=== PATIENT | male | born 1950 | race Caucasian/White ===

== ENCOUNTER 2016-12-19 14:39 | Emergency (ER) | payer MEDICARE ==
[~2016-12-19] VITALS: Ht 185.4 cm; Wt 97.7 kg
[~2016-12-19 14:39] MED LIST: ALPR0.5T8 PO; AMLO10TA3 PO; CYCL10TA9 PO; GABA-502 PO; OXYC5TAB72 PO; PARO10TA2 PO; ZOF8 PO
[2016-12-19 14:46] VITALS: BP 162/90; PULSE 48; RESP 17; O2SAT 97
--- NOTE | 2016-12-19 15:01 | ED.REPORT ---
HPI-Chest Pain 40 and Over Date of Service Dec 19, 2016 ED Provider: Dr. Schultz Pt is a 66 y/o male w/ a hx of presenting to the ED via EMS with his due to an episode of near-syncope prior to arrival. The pt has a history of diagnosed sick sinus syndrome and prolonged QT syndrome and while he was at his mid wife Dr. Henriquez's office today, he experienced an episode of near- syncope. EMS noted a heart rate as low as 44 bpm on route. The patient was hypertensive, systolic BP in the 170s. The pt has been feeling generally weak for many days now, increased today. He has also been experiencing intermittent CP for 1 month including today. His lightheadedness occurs even while lying down. He denies fever, chills, nausea, vomiting. A problem list from her previous admission states: "Torsades de Pointes" with no other explanation. The provides most of the history. Regular mid wife: Dr. Bermeo Nursing Notes Stated Complaint: SYNCOPE Chief Complaint: Chest Pain Nursing Notes Reviewed: Yes Allergies: Coded Allergies: codeine (Unverified Adverse Reaction, Severe, GI UPSET, 06/04/15) fentanyl (Unverified Adverse Reaction, Severe, N&V, 06/04/15) morphine (Unverified Adverse Reaction, Severe, N&V, 06/04/15) pregabalin (Unverified Adverse Reaction, Severe, NIGHTMARES (PT TAKING DRUG), 06/04/15) Scheduled Amlodipine (Amlodipine) 10 Mg Tablet 10 MG PO DAILY PLEASE VERIFY DOSAGE Gabapentin (Gabapentin) 300 Mg Capsule 300 MG PO BID Paroxetine (Paroxetine) 10 Mg Tablet 10 MG PO HS Scheduled PRN Alprazolam (Alprazolam) 0.5 Mg Tablet 0.5 MG PO DAILY PRN PRN For Anxiety Cyclobenzaprine (Cyclobenzaprine) 10 Mg Tablet 10 MG PO HS PRN PRN Spasm Ondansetron (Zofran) 8 Mg Tablet 8 MG PO Q4H PRN PRN For Nausea oxyCODONE (oxyCODONE) 5 Mg Tablet 5 MG PO Q6H PRN PRN For Pain General Time Seen by MD: 15:01 Chief Complaint Other (near syncope) Hx Obtained From: Patient, Spouse Arrived By: Ambulance Sudden in Onset?: Yes Context of Onset: At rest Symptom Duration: Since onset Location: : Substernal Quality: Painful Severity: Current: Mild Severity: Maximum: Mild Recent Healthcare: Previous diagnosis Similar Sx Previous: Yes Past Medical History Past Medical History 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 Physical Exam Initial Vital Signs Vital Signs (First) Date Time Temp Pulse Resp B/P Pulse Ox O2 Delivery O2 Flow Rate FiO2 12/19/16 14:46 36.8 48 17 162/90 97 Room Air 12/19/16 16:19 0 Initial VS: Reviewed, Vital signs abnormal Head / Eyes: Atraumatic, Normocephalic, PERRL ENT: Mucous membranes moist, Conjunctiva normal, No scleral icterus Neck: Supple, Full range of motion Skin: Warm, Dry, No cyanosis Neurologic: Alert, Oriented, Nonfocal Psychiatric: Mood/affect normal, Behavior normal, Normal thought content General/Constitutional: Awake, Alert, Cooperative Behavior: Positive: Anxious (moderate) Respiratory / Chest: Atraumatic, Breath sounds NL, Breath sounds = bilat, No respiratory distress, No rales, No rhonchi, No wheezing, No retractions, No stridor, No chest tenderness, No chest wall deformity, No crepitus Cardiovascular: Heart rate NL, Regular rhythm, Heart sounds NL, No gallop, No murmurs, No rubs, Cap refill not delayed, Peripheral circulation NL Abdomen: Atraumatic, Soft, Non-tender, No guarding, No rebound, No distention, No palpable mass Lower Extremity / Pelvis / MS: No deformity, Neurologic intact, Vascular intact Above the knee amputation on the left Abnormal Mood/Affect: Positive: Anxious, Flat affect Interpretation & Diagnostics Lab Results Interpretation Result Diagram: 12/19/16 1512 12/19/16 1512 Test 12/19/16 15:12 White Blood Count 7.0th/mm3 (3.8-10.1) Red Blood Count 5.33mil/mm3 (4.40-5.80) Hemoglobin 15.7g/dL (13.8-17.2) Hematocrit 46.2% (41.0-50.0) Mean Corpuscular Volume 86.7fL (81-100) Mean Corpuscular Hemoglobin 29.5pg (27.0-35.0) Mean Corpuscular Hemoglobin Concent 34.0% (32.0-37.0) Red Cell Distribution Width 13.6% (12.3-15.4) Platelet Count 141bil/L (150-400) Neutrophils (%) (Auto) 51.9% (40-74) Lymphocytes (%) (Auto) 26.3% (14-46) Monocytes (%) (Auto) 10.1% (4-12) Eosinophils (%) (Auto) 10.5% (0-5) Basophils (%) (Auto) 1.1% (0-3) Sodium Level 138mEq/L (134-144) Potassium Level 4.0mEq/L (3.5-5.2) Chloride Level 99mEq/L (97-108) Carbon Dioxide Level 25mmol/L (18-29) Blood Urea Nitrogen 17mg/dL (8-27) Creatinine 1.21mg/dL (0.76-1.27) Estimat Glomerular Filtration Rate 64mL/min (>59) Glucose Level 83mg/dL (60-99) Calcium Level 9.7mg/dL (8.5-10.1) Magnesium Level 1.9mg/dL (1.6-2.6) Total Bilirubin 0.2mg/dL (0.0-1.2) Aspartate Amino Transf (AST/SGOT) 21U/L (0-50) Alanine Aminotransferase (ALT/SGPT) 35U/L (0-44) Alkaline Phosphatase 80U/L (25-160) Troponin T < 0.010ug/L (0.0-0.011) Total Protein 7.3g/dL (6.4-8.4) Albumin 4.5g/dL (3.4-5.0) ECG Interpretation ECG Interpretation: Bigeminy with underlying sinus rhythm rate 88 Multiple PVCs RBBB Time: 15:13 Interpreted by: ED physician Normal ECG Interpretation: No acute ischemic changes X-Ray Chest Interpretation Chest Xray Interpretation: IMPRESSION: Atelectasis versus scarring involving the left lung base otherwise no acute cardiopulmonary process. Dictated by: Selvin Vazquez RRA Interpreted: Rosy Nayak MD on 12/19/2016 at 15:47 Transcribed by: APRIL on 12/19/2016 at 15:47 View: Portable, 1 view Interpretation / Wet Read by: Interpret - Radiologist Re-Eval/Medical Decision Source of Hx: Old records, EMS, Family Time of Eval: 16:16 Re-Evaluation/Progress Note: Pt rechecked. Discussed admission vs discharge. He feels OK to be discharged at this time. I feel this is appropriate. Vital signs are stable. Labs are normal. Informed pt of plan for treatment. Pt understands and agrees with plan for treatment. F/U instructions and RTER warnings given. All questions addressed. Consultation : Referral / Consult Name: Oliver Henriquez MD Consulted With: Cardiology Call Returned at: 16:00 Aml Analyst: Agrees with eval, Agrees with plan Note: Discussed case with pt's mid wife. Counseled Regarding: Diagnosis, Lab results, Need for follow-up, When/why to return to ED Discharge & Departure Primary Impression: Near syncope Disposition: Home Discharge Condition All VS Reviewed: Yes Condition: Stable Patient Instructions: Syncope (ED) Additional Instructions: No dangerous cause for your symptoms was found today. If you faint and go unconscious, return to the ER tonight. Follow-up with Dr. Forrest as soon as you can to discuss furterh work-up. Call Dr. Henriquez's office to reschedule today 's visit. Referrals: Maximus Bermeo MD (PCP) Oliver Henriquez MD Scribcassi Attestation Portions of this note were transcribed by Jordan Lorenzo. I, Dr. Schultz personally performed the history, physical exam and medical decision-making; I reviewed and confirmed the accuracy of the information in the transcribed note. Signed by Paulette Aquino, 12/19/16 - 2097 copies to: Oliver Henriquez MD; Maximus Bermeo MD, Kirk H MD Dec 19, 2016 15:01 JORDAN LORENZO Dec 19, 2016 15:04 JORDAN LORENZO Dec 19, 2016 15:04
[2016-12-19 15:20] LABS: BASOPHILS % (AUTO) 1.1 % (0-3); EOSINOPHILS % (AUTO) 10.5 % (0-5); MONOCYTES % (AUTO) 10.1 % (4-12); Mean Corpuscular Hemoglobin 29.5 pg (27.0-35.0); Mean Corpuscular Volume 86.7 fL (81-100); NEUTROPHILS % (AUTO) 51.9 % (40-74); Platelet Count 141 bil/L (150-400)
[2016-12-19 15:42] LABS: Magnesium 1.9 mg/dL (1.6-2.6)
--- NOTE | 2016-12-19 15:48 | DRSVH ---
PROCEDURE: X-RAY CHEST ONE VIEW, PORTABLE ([id number]) INDICATIONS: Chest pain TECHNIQUE: One view of the chest was acquired. COMPARISON: [facility], , CHEST 2 VIEW, 03/29/2016, 13:25. FINDINGS: Surgical changes and devices: None. Lungs and pleura: No pleural effusions or pneumothorax. Lungs are clear, aside from mild scarring v ersus atelectasis at the left lung base. Mediastinum: Mediastinal contours appear normal. Heart size is normal. Bones and chest wall: No suspicious bony lesions. Overlying soft tissues appear unremarkable. IMPRESSION: Atelectasis versus scarring involving the left lung base otherwise no acute cardiopulmona ry process. Dictated by: Selvin Vazquez RRA Interpreted: Rosy Nayak MD on 12/19/2016 at 15:47 Transcribed by: APRIL on 12/19/2016 at 15:47 Approved by: Rosy Nayak MD, PhD on 12/19/2016 at 17:05
[2016-12-19 15:51] LABS: TROPONIN T < 0.010 ug/L (0.0-0.011)
[2016-12-19 16:19] VITALS: BP 157/90; PULSE 52; RESP 15; O2SAT 99
[2016-12-19 16:48] VITALS: BP 175/97; PULSE 51; RESP 18; O2SAT 98
== END 2016-12-19 16:50 | disposition home or self-care (01) ==
LOC: SED 14:39 → EDBD 14:39 → SED 16:50
DX: R55 Syncope and collapse (principal); R53.1 Weakness; R07.2 Precordial pain; R42 Dizziness and giddiness; I10 Essential (primary) hypertension; Z87.891 Personal history of nicotine dependence; Z88.5 Allergy status to narcotic agent; Z88.8 Allergy status to other drugs, medicaments and biological substances

== ENCOUNTER 2016-12-27 09:12 | Day surgery (SDC) | payer MEDICARE ==
[~2016-12-27] VITALS: Ht 185.4 cm; Wt 98.6 kg
[2016-12-27] VITALS (13 sets, daily range): BP systolic 138–173; BP diastolic 72–122; PULSE 46–68; RESP 15–22; O2SAT 96–100
[2016-12-27] MEDS ORDERED: 0.9% Sodium Chloride 1,000 ML IV PRN (09:54)
[2016-12-27] MEDS ORDERED: Vancomycin Inj 1,000 MG in IV Premix 1 EACH IV ONE (09:55)
[2016-12-27 12:35] LABS: BASOPHILS % (AUTO) 0.7 % (0-3); EOSINOPHILS % (AUTO) 12.3 % (0-5); MONOCYTES % (AUTO) 7.2 % (4-12); Mean Corpuscular Volume 87.3 fL (81-100); Platelet Count 144 bil/L (150-400)
[2016-12-27] MEDS ORDERED: PARO20TA5 PO (12:47)
[2016-12-27] MEDS ORDERED: TRAZ-118 PO (12:47)
[2016-12-27 12:50] LABS: INR 0.96 ratio
[2016-12-27] MEDS ORDERED: Vancomycin 1,000mg/200 mL NS IV ONE (12:58)
[2016-12-27] MEDS ORDERED: Heparin 5,000 Units/500 mL NS Premix IV ONE (13:12)
[2016-12-27] MEDS ORDERED: 0.9% Sodium Chloride 250 ML ONE (13:12)
[2016-12-27] MEDS ORDERED: Bupivacaine-MPF 0.5% 30 mL Inj ONE (13:12)
[2016-12-27] MEDS ORDERED: Vancomycin 1,000 mg Inj ONE (14:16)
[2016-12-27] MEDS ORDERED: fentaNYL-PF 50 mCg/mL 2 mL Inj ONE ×2 (14:44→15:31)
[2016-12-27] MEDS ORDERED: Ondansetron 2 mg/mL 2 mL Inj IVPUSH PRN (16:15)
[2016-12-27] MEDS ORDERED: CeFAZolin Inj 1 GM in IV Premix 1 EACH IV SCH (16:30)
--- NOTE | 2016-12-27 17:16 | DRSVH ---
PROCEDURE: X-RAY CHEST ONE VIEW, PORTABLE ([id number]) INDICATIONS: For new leads placed TECHNIQUE: One view of the chest was acquired. COMPARISON: [facility], FRANCIA, CHEST 2 VIEW, 03/29/2016, 13:25. [facility], CR, XR [address] 1VW (PORTABLE), 12/19/2016, 14:44. FINDINGS: Surgical changes and devices: There is a cardiac pacemaker with dual leads in expected position. Lungs and pleura: No pleural effusions or pneumothorax. Lungs are clear. Mediastinum: Mediastinal contours appear normal. Heart size is normal. Bones and chest wall: No suspicious bony lesions. Overlying soft tissues appear unremarkable. IMPRESSION: Cardiac pacemaker leads in expected position. Dictated by: Ct Blair M.D. on 12/27/2016 at 17:12 Approved by: Ct Blair M.D. on 12/27/2016 at 17:13
[2016-12-27] MEDS: 0.9% Sodium Chloride 1,000 ML IV SCH (17:34)
--- NOTE | 2016-12-27 17:43 | NUR ---
Care assumed Care assumed at 1400. Voided computer operations analyst to labor representative, Ativan 1mg IV given prior to call per md order by Kiya Hough RN. Pt. states feeling better. To specialist employee labor relations at 1430. Returned at 1645. VSS but hypertensive. Pt. dozing intermittently. Was unable to take BP med today r/t empty stomach. At 1715 c/o 4/10 left stump pain. States he takes 1 or 2 oxycodone, depending on his pain level. Dr. Henriquez notified and orders received. Oxycodone 10mg po given and awaiting relief. Dressing c/d/i. Ice pack on. EKG and CXR done. Apaced with PVCs. at bedside until 1740, informed of room number. Continue to monitor per orders.
--- NOTE | 2016-12-27 19:17 | NUR ---
Transfer Pt. very sleepy though stated pain medicine did not help before transfer. Report called to Jemma Mueller RN. Dressing unchanged. True BP 154/94. Transported to [facility] via bed with all belongings in no distress but on arrival c/o increased leg pain, 6/10 with BP 160's/100 and also back discomfort from bed. Surface power on and stated back getting better but leg pain remained. Dr. Henriquez notified. Orders received for pain and BP med. Reported to floor nurses and bedside check done.
[2016-12-27] MEDS ORDERED: ALPRAZolam 0.5 mg Tablet PO PRN (19:40)
--- NOTE | 2016-12-27 19:52 | NUR ---
receipt from [facility] patient received from [facility] at 1850 to room 3009. patient oriented to room and call light and states understanding. Dr. Henriquez notified per [facility] RN of elevated blood pressures including blood pressure of 169/100 on arrival to floor. Dr. Henriquez also notified per [facility] RN Mila of patient's "8/10" "phantom leg pain" from amputation area which is "chronic" per patient as amputation done "many years ago". orders received for iv morphine prn and for today's dose of amlodipine to be given tonight. patient confirms that he did not take amlodipine today. oncoming RN Belkis Miller given report and notified of new orders and to give IV morphine once verified. additionally notified of blood pressures and new order for amlodipine tonight. left arm in sling as per order. dressing to left upper chest c/d/i. patient denies pain at pacer site. tele box #[id number] placed per [facility] rn and checked with front desk monitor and is A paced at 60.
[2016-12-27] MEDS ORDERED: PARoxetine 20 mg Tablet PO SCH (21:00)
--- NOTE | 2016-12-27 21:34 | OP ---
[address] [address] OPERATIVE REPORT PATIENT: TOMMY GORMAN : 1950 MR#: [id number] ADMIT: 12/27/2016 JOB ID: [id number] DATE OF SURGERY: 12/27/2016 PREOPERATIVE DIAGNOSIS(ES): Sick sinus syndrome. POSTOPERATIVE DIAGNOSIS(ES): Sick sinus syndrome. PROCEDURES PERFORMED: 1. Dual-chamber pacemaker implantation. 2. Left upper extremity venogram. 3. Fluoroscopy. SURGEON: 1. Oliver Henriquez, Electrophysiology attending. 2. Belkis Moss MD, Intervention Cardiology attending. MECHANICAL DESIGN ENGINEER PRODUCTS: [employer]. IMPLANTED DEVICES: 1. [employer] pulse generator, model EK3309, serial #[id number]. 2. Right atrial lead [employer], LPA 1200M 52 cm serial #[id number]. 3. RV lead [employer], LPA 1200M, 58 cm, serial #[id number]. ANESTHESIA: Bolus dosing of Versed and fentanyl were utilized for an appropriate level of sedation. INDICATION: The patient is a pleasant 66-year-old man with a structurally normal heart and symptomatic sinus bradycardia with heart rates in the low 40s. After discussion of risks and benefits of pacemaker implantation, she opted to proceed. PROCEDURAL DESCRIPTION: Following informed signed consent, the patient was taken to the EP laboratory in a fasting nonsedated state, where he was prepped and draped in usual sterile fashion. The left infraclavicular region was infiltrated with 40 cc of a 50/50 mixture of bupivacaine and lidocaine. Once adequate anesthesia had been achieved, a 3 cm transverse incision was performed 2 cm below the left clavicle. Dissection was carried down to the pectoralis fascia and a pocket was then fashioned using a combination of electrocautery and blunt dissection. Once adequate hemostasis had been achieved, a left upper extremity venogram was performed. Under venographic guidance, the left axillary vein was cannulated over the first rib twice with a micropuncture needle to deploy two 0.035, 3 mm J guidewires. Over the first of these, an 8-Polish tear-away sheath was advanced. Once the guidewire was removed, active fixation lead was advanced to the RV outflow tract and ultimately to the RV apex. The lead was affixed in position using associated active fixation screw. The lead was connected to the external analyzer and demonstrated appropriately sensed R waves, impedance, and capture threshold was checked to 10 V and there was no evidence of diaphragmatic stimulation. Attention was now paid to the right atrial lead. Over the other previously deployed J guidewire, another 8-Polish tear-away sheath was advanced. Once the guidewire was removed, an active fixation lead was advanced to the right atrial appendage. It was affixed in position using associated active fixation screw. The lead was connected to the external analyzer and demonstrated appropriately sensed P waves, impedance, capture threshold was checked to 10 V and there was no evidence of diaphragmatic stimulation. Once the position and redundancy of both leads was confirmed with multiple views, the leads were anchored to the prepectoralis fascia using their associated anchoring sleeves and two Ethibond sutures. The pocket was then copiously irrigated with antibiotic solution, the lead was connected to the generator, the generator was placed in the pocket and it was affixed to the floor of the pocket using 1-0 Ti-Cron suture. The incision was then closed with running layers of absorbable suture. The wound was dressed with skin adhesive and a small dressing at the end of the procedure. Sponge, needle and instrument counts were all correct. COMPLICATIONS: None. ESTIMATED BLOOD LOSS: 10 cc. DEVICE MEASURED DATA: 1. Right atrial lead 1.5 mV, 530 ohms, 0.5 V at 0.4 msec. 2. RV lead 9 mV, 710 ohms, 0.5 V at 0.4 msec. FINAL PROGRAM PARAMETERS: DDDR 60 to 130 beats per minute. IMPRESSION: Successful dual-chamber pacemaker implantation. PLAN: 1. Stat portable chest x-ray to be obtained. 2. Lateral chest x-ray in the morning. 3. Device . 4. IV Ancef through tomorrow. 5. Keflex x7 days. 6. Wound check in one week. ATTENDING STATEMENT: Oliver Henriquez MD, electrophysiology, was present and supervised/performed all aspects of this procedure.
[2016-12-28] MEDS ORDERED: Vancomycin Inj 1,000 MG in IV Premix 1 EACH IV ONE (01:00)
[2016-12-28 01:55] VITALS: BP 152/79; PULSE 68; RESP 16; O2SAT 96
[2016-12-28] MEDS: 0.9% Sodium Chloride 1,000 ML IV SCH ×2 (02:13→08:00)
[2016-12-28 05:09] VITALS: BP 145/89; PULSE 60; RESP 16; O2SAT 93
[2016-12-28 07:48] VITALS: BP 158/97; PULSE 56; RESP 15; O2SAT 94
--- NOTE | 2016-12-28 09:29 | PCM.DIMED ---
Discharge Instructions Date of Service Dec 28, 2016 Dates of Hospitalization Discharge Diagnosis Discharge Diagnosis Persistent Bradycardia Recurrent Near Syncope History of Long QT and Cardiac Arrest LVH RBBB Diet Heart Healthy Activity Other (Keep incision dry one day. Do not extend left elbow high above shoulder for one month. Do not lift more than 10 lbs with the left arm for one month.) Call your provider Fever or Chills, Bleeding, Excessive diarrhea Patient Instructions Follow-up in: 1 week Mid-level Provider (F9): Ryan Holder PA-C Follow-up with Mid-level in: 6 weeks Ryan Holder PA-C Dec 28, 2016 09:29
--- NOTE | 2016-12-28 10:02 | DRSVH ---
PROCEDURE: X-RAY CHEST, TWO VIEWS ([id number]) INDICATIONS: For new lead placement TECHNIQUE: 2 views of the chest were acquired. COMPARISON: [facility], CR, XR CHEST 1VW (PORTABLE), 12/27/2016, 16:38. FINDINGS: Surgical changes and devices: Stable positioning dual-chamber cardiac pacemaker. Lungs and pleura: No pleural effusions or pneumothorax. Lungs are clear. Mediastinum: Mediastinal contours are normal. Heart size is normal. Bones and chest wall: No suspicious bony abnormalities. Soft tissues appear unremarkable. IMPRESSION: Stable chest. Dictated by: Selvin Vazquez RR Interpreted: Rosy Nayak MD on 12/28/2016 at 10:01 Transcribed by: APRIL on 12/28/2016 at 10:01 Approved by: Rosy Nayak MD, PhD on 12/28/2016 at 17:07
[2016-12-28] MEDS ORDERED: DOXY100C2 PO (10:18)
--- NOTE | 2016-12-28 10:21 | NUR ---
Social Work- initial assessment/ discharge: Data:See initial assessment.Pt is a66 y/o male who was admitted for sick sinus syndrome per H&P. Pt insurance is [employer] and [employer] and PCP is Maximus Bermeo MD. EMR reviewed. SW met with pt to discuss discharge planning, SW role explained. Pt is alert and oriented x3. Pt resides at home with his in [facility] where he remains independent with ADLs. Pt uses w/c or fww at baseline and does not drive. Pt has not had HH, but has been to SNF.Pt does not have long term care phlebotomist care insurance or VA benefits. SW discussed DPOA/advanced directive, pt states he has completed this, SW encouraged pt to bring a copy into the hospital. Pt likely will discharge home today. Pt's to provide transport home at discharge. No discharge needs identified. SW provided phone number and plan on white board in room. All updated and agreeable to plan. Assessment:Pt who is independent at baseline. Plan:Pt to discharge home today via POV. No anticipated discharge needs identified. All updated and agreeable to plan. DAMIAN Echavarria Addendum: 12/28/16 at 1022 by VEGA MCKOY Amended: Links added.
[2016-12-28 10:30] VITALS: PULSE 70
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
--- NOTE | 2016-12-28 12:05 | NUR ---
Discharge He discharged via wheelchair and with his about 1145. His two IVs and telemetry were discontinued intact. Paperwork discussed and given to him (care notes, instructions, appointments, pacemaker info). He had no questions or concerns at the time of discharge.
== END 2016-12-28 11:54 | disposition home or self-care (01) ==
LOC: SOUO 09:12 → MPC 18:41 → SOUO 12-28 11:54
PROVIDERS: ATTEND Internal Medicine Cardiovascular Disease
DX: I49.5 Sick sinus syndrome (principal); R55 Syncope and collapse; I51.7 Cardiomegaly; I45.10 Unspecified right bundle-branch block; I10 Essential (primary) hypertension; Z89.612 Acquired absence of left leg above knee; Z86.74 Personal history of sudden cardiac arrest; F32.9 Major depressive disorder, single episode, unspecified
CPT/HCPCS: 33208; 36415; 71010; 71020; 80048; 85025; 85610; 93005; 99152; 99153; C1769; C1785; C1892; C1898; J1644; J2060; J2250; J2270; J2405; J3010; J3370; J7050; Q9967

== ENCOUNTER 2017-01-05 11:20 | Observation (INO) | payer MEDICARE ==
[~2017-01-05] VITALS: Ht 185.4 cm; Wt 95.3 kg
[2017-01-05] VITALS (11 sets, daily range): BP systolic 145–207; BP diastolic 91–120; PULSE 62–84; RESP 14–26; O2SAT 95–100
[~2017-01-05 11:20] MED LIST changes: +DOXY100C2 PO; -PARO10TA2 PO; +PARO20TA5 PO; +TRAZ-118 PO
--- NOTE | 2017-01-05 11:21 | ED.REPORT ---
HPI-Chest Pain 40 and Over Date of Service Jan 05, 2017 ED Provider: The patient is a 66 year old male with history of sick sinus syndrome s/p pacemaker/defibrillator 1 week ago, hypertension, who was brought to the emergency department by EMS for chest pain. The patient was walking into the cardiology office this morning when he suddenly developed a headache and subsequently developed chest pain, diaphoresis, nausea, and shortness of breath. Medics administered 324 mg aspirin. His pain has improved since onset and is currently at a "5/10." He also mentions right upper extremity swelling which is new. He denies neck pain/stiffness, fever, chills, vomiting, diarrhea, numbness or weakness. Commercial Finance Manager is Dr Henriquez Nursing Notes Stated Complaint: CHEST PAIN Nursing Notes Reviewed: Yes Allergies: Coded Allergies: codeine (Unverified Adverse Reaction, Severe, GI UPSET, 01/05/17) pregabalin (Unverified Adverse Reaction, Severe, NIGHTMARES (PT TAKING DRUG), 01/05/17) morphine (Verified Adverse Reaction, Intermediate, Rash,Itching,, 01/05/17) Scheduled Amlodipine (Amlodipine) 10 Mg Tablet 10 MG PO DAILY Gabapentin (Gabapentin) 600 Mg Tablet 900 MG PO TID Paroxetine (Paroxetine) 30 Mg Tablet 30 MG PO DAILY Trazodone (Trazodone) 50 Mg Tablet 100 MG PO HS Scheduled PRN Cyclobenzaprine (Cyclobenzaprine) 10 Mg Tablet 10 MG PO DIRECTED PRN PRN Spasm Ondansetron (Zofran) 8 Mg Tablet 8 MG PO Q4H PRN PRN For Nausea oxyCODONE (oxyCODONE) 5 Mg Tablet 5 MG PO Q6H PRN PRN For Pain General Time Seen by MD: 11:20 Chief Complaint Chest pain Hx Obtained From: Patient, Spouse, EMS Arrived By: Ambulance Sudden in Onset?: Yes Onset Occurred: 16 - 30 minutes ago Symptom Duration: Since onset Quality: Painful, Pressure Severity: Current: Pain level 5 out of 10 Severity: Maximum: Moderate Recent Healthcare: No recent hospitalization, Recent doctor visit Similar Sx Previous: No Past Medical History Past Medical History Notes: Commercial Finance Manager: Dr. 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 Hypertension Past Surgical History Left leg above the knee amputation Pacemaker Family History Noncontributory Smoking History Former Smoker, Never Smoker Social History Alcohol Use: "Social" Drug Use: THC Other Social History: Good social support, , Local resident Ambulatory Status Independent Review of Systems Constitutional: Denies: Chills, Fever Respiratory: Reports: Shortness of breath Cardiovascular: Reports: Chest pain GI: Reports: Nausea, Denies: Diarrhea, Vomiting Musculoskeletal: Reports: Extremity swelling (RUE), Denies: Neck pain Skin: Reports Diaphoresis Neurologic: Reports: Headache, Denies: Dizziness, Focal weakness, Numbness Complete sys rev & neg: except as marked. Physical Exam Initial Vital Signs Vital Signs (First) Date Time Temp Pulse Resp B/P Pulse Ox O2 Delivery O2 Flow Rate FiO2 01/05/17 11:32 36.8 70 20 164/94 98 Room Air Initial VS: Reviewed Head / Eyes: Atraumatic, Normocephalic, PERRL ENT: Mucous membranes moist, Conjunctiva normal, No scleral icterus Neck: Supple, Non-tender, Full range of motion Lymphatic: No lymphadenopathy Extremities: Vascular intact, Neuro intact, No swelling, No tenderness Skin: Warm, Dry, No cyanosis Neurologic: Alert, Oriented, Nonfocal Psychiatric: Mood/affect normal, Behavior normal, Normal thought content General/Constitutional: Awake, Alert, Well appearing, Cooperative Respiratory / Chest: Breath sounds NL, Breath sounds = bilat, No respiratory distress, No rales, No rhonchi, No wheezing, No stridor Pacemaker scar in the left upper portion of chest with some ecchymosis but no warmth, tenderness, swelling, or crepitus. Cardiovascular: Heart rate NL, Regular rhythm, Heart sounds NL, No murmurs, Peripheral circulation NL, Pulses = bilaterally, No gross BP differential Abdomen: Atraumatic, Soft, Non-tender, McBurney's non-tender, No guarding, No rebound, BS normoactive, No distention, No hernia, No palpable mass Interpretation & Diagnostics Limited echocardiogram showing no pericardial fluid Lab Results Interpretation Result Diagram: 01/05/17 1224 01/05/17 1224 Test 01/05/17 12:24 White Blood Count 7.7th/mm3 (3.8-10.1) Red Blood Count 5.11mil/mm3 (4.40-5.80) Hemoglobin 15.2g/dL (13.8-17.2) Hematocrit 44.1% (41.0-50.0) Mean Corpuscular Volume 86.3fL (81-100) Mean Corpuscular Hemoglobin 29.7pg (27.0-35.0) Mean Corpuscular Hemoglobin Concent 34.5% (32.0-37.0) Red Cell Distribution Width 13.4% (12.3-15.4) Platelet Count 119bil/L (150-400) Neutrophils (%) (Auto) 59.9% (40-74) Lymphocytes (%) (Auto) 20.2% (14-46) Monocytes (%) (Auto) 9.4% (4-12) Eosinophils (%) (Auto) 9.4% (0-5) Basophils (%) (Auto) 0.8% (0-3) Sodium Level 138mEq/L (134-144) Potassium Level 4.2mEq/L (3.5-5.2) Chloride Level 100mEq/L (97-108) Carbon Dioxide Level 24mmol/L (18-29) Blood Urea Nitrogen 15mg/dL (8-27) Creatinine 0.94mg/dL (0.76-1.27) Estimat Glomerular Filtration Rate 86mL/min (>59) Glucose Level 94mg/dL (60-99) Calcium Level 9.7mg/dL (8.5-10.1) Magnesium Level 1.9mg/dL (1.6-2.6) Total Bilirubin 0.2mg/dL (0.0-1.2) Aspartate Amino Transf (AST/SGOT) 19U/L (0-50) Alanine Aminotransferase (ALT/SGPT) 25U/L (0-44) Alkaline Phosphatase 87U/L (25-160) Troponin T < 0.010ug/L (0.0-0.011) Total Protein 6.9g/dL (6.4-8.4) Albumin 4.4g/dL (3.4-5.0) Hold Lay Top Tube Received (Received) ECG Interpretation ECG Interpretation: Paced rhythm Time: 11:24 Interpreted by: ED physician X-Ray Chest Interpretation Chest Xray Interpretation: IMPRESSION: 1. no acute cardiopulmonary disease. 2. Bibasilar atelectasis. Dictated by: Ct Blair M.D. on 01/05/2017 at 11:55 Interpretation / Wet Read by: Interpret - Radiologist CT Head Interpretation IMPRESSION: No acute intracranial abnormalities. Dictated by: Ct Blair M.D. on 01/05/2017 at 12:03 Re-Eval/Medical Decision Med Decision/Clinical Course Unclear etiology of patient's intermittent chest pain associated with headache, question if its related PVCs. We will plan to admit him for provocative stress testing. Source of Hx: Old records, EMS, Family, Private physician Time of Eval: 12:56 Re-Evaluation/Progress Note: Rechecked the patient. He still complains of a headache and intermittent palpitations. The palpitations last for about 10 minutes and resolves spontaneously. He denies chest heaviness or pressure. Time of Eval: 13:55 Re-Evaluation/Progress Note: Rechecked the patient. Discussed plan for admission. All questions were addressed. Consultation #1: Consulted With: Cardiology Call Returned at: 13:49 Note: Spoke with Dr. Henriquez's nurse who gave the information to him. He recommends admission. Consultation #2: Referral / Consult Name: Armando Perez MD Consulted With: Hospitalist Call Returned at: 15:50 Coffee Shop Attendant: Will see patient, Agrees with eval, Agrees with plan, Accepts admit Counseled Regarding: Diagnosis, Lab results, Need for admission Discharge & Departure Primary Impression: Chest pain Chest pain type: unspecified Qualified Code: R07.9 - Chest pain, unspecified Disposition: ADMITTED TO HOSPITAL Discharge Condition All VS Reviewed: Yes Condition: Stable Referrals: Maximus Bermeo MD (PCP) Oliver Henriquez MD Attestation Portions of this note were transcribed by Sharlene Hanks. I, Dr. Bray personally performed the history, physical exam and medical decision-making; I reviewed and confirmed the accuracy of the information in the transcribed note. Signed by: Paulette Jimenez, 01/05/2017 and [id number]. copies to: Oliver Henriquez MD; Maximus Bermeo MD, Timothy S DO Jan 05, 2017 11:21 Sharlene Hanks Jan 05, 2017 11:30
--- NOTE | 2017-01-05 11:57 | DRSVH ---
PROCEDURE: X-RAY CHEST ONE VIEW, PORTABLE ([id number]) INDICATIONS: CHEST PAIN TECHNIQUE: One view of the chest was acquired. COMPARISON: [facility], CR, XR CHEST 1VW (PORTABLE), 12/27/2016, 16:38. FINDINGS: Surgical changes and devices: There is a cardiac pacemaker with lesion expected position.. Lungs and pleura: Bibasilar opacities are most atelectasis. No pleural effusions or pneumothorax. Mediastinum: Mediastinal contours appear normal. Heart size is normal. Bones and chest wall: No suspicious bony lesions. Overlying soft tissues appear unremarkable. IMPRESSION: 1. no acute cardiopulmonary disease. 2. Bibasilar atelectasis. Dictated by: Ct Blair M.D. on 01/05/2017 at 11:55 Approved by: Ct Blair M.D. on 01/05/2017 at 11:56
--- NOTE | 2017-01-05 12:06 | DRSVH ---
PROCEDURE: CT BRAIN WITHOUT CONTRAST ([id number]) INDICATIONS: 66-year-old male with headache. TECHNIQUE: Noncontrast 4.5 mm thick angled axial sections acquired from the foramen magnum to the vertex, with c oronal reformats. COMPARISON: [facility], CT, HEAD WITHOUT CONTRAST, 03/22/2011, 15:17. FINDINGS: Image quality: Excellent. CSF spaces: Basal cisterns are patent. No extra-axial fluid collections. The ventricles are symmet gavi in size and shape. Brain: No intracranial bleeds or masses. There is minimal cerebral volume loss for age, with result ant ventricular and sulcal prominence. There are mild periventricular and deep white matter chronic small vessel ischemic changes. There is intracranial internal carotid artery atherosclerosis. Skull and face: Calvarium and visualized facial bones appear intact, without suspicious lesions. Sinuses: Visualized sinuses and mastoids are clear. IMPRESSION: No acute intracranial abnormalities. Dictated by: Ct Blair M.D. on 01/05/2017 at 12:03 Approved by: Ct Blair M.D. on 01/05/2017 at 12:05
--- NOTE | 2017-01-05 12:30 | DRSVH ---
[facility] [address] [place] [address] Echocardiogram Report Name: TOMMY GORMAN te: 01/05/2017 [facility] Exam Location: [facility] Gender: Male : 1950 Age: 66 yrs Reason For Study: Chest pain Ordering Physician: HOSPITALIST [facility] Performed By: Joyce Riggins Referring Physician: Oliver Henriquez Interpretation Summary A limited 2D echocardiogram was performed to assess for pericardial effusion in the setting of recent pacemaker placement. There is a pacemaker lead in the right ventricle. There is no pericardial effusion. Compared to the study on 04/06/2016, the pacemaker lead is new. Procedure: A limited 2D echocardiogram was performed to assess for pericardial effusion in the setting of recent pacemaker placement. The study quality was technically adequate. The patient has a paced rhythm. Right Ventricle: There is a pacemaker lead in the right ventricle. Pericardium/ Pleura There is no pericardial effusion. Reading Physician:12:29 PM
[2017-01-05 12:33] LABS: BASOPHILS % (AUTO) 0.8 % (0-3); EOSINOPHILS % (AUTO) 9.4 % (0-5); MONOCYTES % (AUTO) 9.4 % (4-12); Mean Corpuscular Hemoglobin 29.7 pg (27.0-35.0); Mean Corpuscular Volume 86.3 fL (81-100); NEUTROPHILS % (AUTO) 59.9 % (40-74); Platelet Count 119 bil/L (150-400)
[2017-01-05 13:15] LABS: Magnesium 1.9 mg/dL (1.6-2.6)
[2017-01-05 13:35] LABS: TROPONIN T < 0.010 ug/L (0.0-0.011)
[2017-01-05] MEDS ORDERED: TRAZ-115 PO (15:30)
[2017-01-05] MEDS ORDERED: GABA600T2 PO (15:30)
[2017-01-05] MEDS ORDERED: PARO30TA4 PO (15:35)
[2017-01-05] MEDS ORDERED: Nitroglycerin 2% 1 Gm Ointment TOPICAL ONE (15:50)
[2017-01-05] MEDS: Ondansetron 2 mg/mL 2 mL Inj IVPUSH PRN ×3 (15:56→21:42)
--- NOTE | 2017-01-05 15:58 | NUR ---
Admit nurse note Partial admission assessment completed in the ER. Pt. c/o -05/29 soto and L lower leg pain. The leg pain is chronic (for which pt. uses marijuana every day and did not use today.) Soto is not chronic for pt. but he c/o soto's, palpitations, dizziness and sob with exertion this week since pacemaker placement. Pt. went to scheduled 1 week checkup appointment and was referred here. Med rec completed per pt. recall and med list from pharmacy. Allergies verified and sticker placed. to bring in advance directives as she is able. Zofran given for nausea and nitro paste placed per ED MD orders during my assessment. Dr. Perez in with pt. now. Addendum: 01/05/17 at 1614 by AKHIL ELAM RN Report given to Ronnell Gurrola
[2017-01-05] MEDS ORDERED: Polyethylene Glycol (PEG) 17 Gm Powder PO PRN (16:20)
[2017-01-05] MEDS ORDERED: Alum-Mag Hydrox-Simeth 30 mL Suspension PO PRN (16:20)
--- NOTE | 2017-01-05 16:39 | PCM.HPMED ---
Subjective Date of Service Jan 05, 2017 Primary Provider: Admitting Physician: Armando Perez MD Primary Care Physician: Maximus Bermeo MD Attending Physician: Armando Perez MD Chief Complaint: Worsening of palpitations/4 days Worsening of chest pain/4 days Worsening of headache/4d History of Present Illness: 66-year-old gentleman with past medical history of torsades and sudden cardiac arrest in 2007, recent pacemaker insertion on 12/27/16 for sick sinus syndrome was sent from cardiology office to emergency room due to worsening palpitation, chest pain and headache of 4 days . Patient states he has episodes of palpitation, recurrent near syncope and associated lightheadedness for long time. He was evaluated and was found to have symptomatic bradycardia HR 40s and underwent successful dual-chamber pacemaker insertion on December 27. He states he had complete resolution of all his symptoms for the first 2-3 days following pacemaker insertion. He says he started to have episodes of palpitation and associated chest pressure lasting few seconds. He would have associated global headache,5-7/10 during palpitation/ chest pressure episodes. He had scheduled follow-up appointment today with his ergonomics technician Dr Henriquez today . He had more severe and prolonged episode of his symptoms when he walked from his car to the avian keeper office. Denies diaphoresis. Denies shortness of breath. notes his left upper extremity slightly more swollen. Denies fever He was seen by in office today. Pacemaker interrogated and reportedly functioning well. He was advised to come to emergency room for evaluation In ED, BP 164/94, otherwise unremarkable vitals and exam EKG a paced.monitor review ,frequent PVCs Unremarkable labs with negative troponin He reportedly had episodes of symptoms in the emergency room which coincided with frequent PVCs on monitor as per ED attending Limited echocardiogram negative for pericardial effusion,CTA chest ordered Review of Systems: A comprehensive review of systems performed, pertinent positives and negatives included in history of present illness Allergies Coded Allergies: codeine (Unverified Adverse Reaction, Severe, GI UPSET, 01/05/17) pregabalin (Unverified Adverse Reaction, Severe, NIGHTMARES (PT TAKING DRUG), 01/05/17) morphine (Verified Adverse Reaction, Intermediate, Rash,Itching,, 01/05/17) Home Medications Completed doxycycline today Amlodipine 10 mg by mouth daily, has not been taking since pacemaker insertion due to hypotension on day of pacemaker insertion Gabapentin 300 mg by mouth twice a day Oxycodone 5 mg by mouth. Paroxetine 30 mg by mouth at bedtime Trazodone 50 mg at bedtime PMH History of torsades and cardiac arrest 2007 Left above-knee amputation due to accident Recent diagnosis of persistent bradycardia/recurrent near syncope due to sick sinus syndrome status post pacemaker Surgical History Left [id number] amputation Recent pacemaker insertion Multiple debridement of AKA stump Family History Mother alive, age 92, no cardiac issue Father Social History Hx Alcohol Use: Yes (6 beers a day,quit 4 weeks ago ) Hx Substance Use: Yes (MARIJUANA DAILY / NO STREET DRUGS ) Smoking Status: Former Smoker, Never Smoker Exam Vital Signs Vital Sign - Last Date Time Temp Pulse Resp B/P Pulse Ox O2 Delivery O2 Flow Rate FiO2 01/05/17 15:57 74 14 177/107 97 Nasal Cannula 2 01/05/17 14:04 36.8 Exam Gen. patient is lying comfortably in hospital bed HEENT: Head is normocephalic atraumatic, Pupils equal and reactive, extraocular movements intact, Lungs clear to auscultation bilaterally Heart regular rate and rhythm without murmurs gallops or rubs Abdomen soft nontender without hepatosplenomegaly Extremities left AKA,LUE slightly swollen Psych alert and oriented to person place and time Neuro cranial nerves II through XII are grossly intact Lymph: There is no lymphadenopathy appreciated in the cervical supra infraclavicular regions : no Lab and Diagnostics Result Diagram: 01/05/17 1224 01/05/17 1224 X-Rays, CTs and MRIs PROCEDURE: CT BRAIN WITHOUT CONTRAST ([id number]) INDICATIONS: 66-year-old male with headache. TECHNIQUE: Noncontrast 4.5 mm thick angled axial sections acquired from the foramen magnum to the vertex, with coronal reformats. COMPARISON: [facility], CT, HEAD WITHOUT CONTRAST, 03/22/2011, 15:17. FINDINGS: Image quality: Excellent. CSF spaces: Basal cisterns are patent. No extra-axial fluid collections. The ventricles are symmetric in size and shape. Brain: No intracranial bleeds or masses. There is minimal cerebral volume loss for age, with resultant ventricular and sulcal prominence. There are mild periventricular and deep white matter chronic small vessel ischemic changes. There is intracranial internal carotid artery atherosclerosis. Skull and face: Calvarium and visualized facial bones appear intact, without suspicious lesions. Sinuses: Visualized sinuses and mastoids are clear. IMPRESSION: No acute intracranial abnormalities. Dictated by: Ct Blair M.D. on 01/05/2017 at 12:03 ROCEDURE: X-RAY CHEST ONE VIEW, PORTABLE ([id number]) INDICATIONS: CHEST PAIN TECHNIQUE: One view of the chest was acquired. COMPARISON: [facility], CR, XR CHEST 1VW (PORTABLE), 12/27/2016, 16: 38. FINDINGS: Surgical changes and devices: There is a cardiac pacemaker with lesion expected position.. Lungs and pleura: Bibasilar opacities are most atelectasis. No pleural effusions or pneumothorax. Mediastinum: Mediastinal contours appear normal. Heart size is normal. Bones and chest wall: No suspicious bony lesions. Overlying soft tissues appear unremarkable. IMPRESSION: 1. no acute cardiopulmonary disease. 2. Bibasilar atelectasis. Dictated by: Ct Blair M.D. on 01/05/2017 at 11:55 Assessment & Plan 66-year-old gentleman with past medical history of torsades and sudden cardiac arrest in 2007, recent pacemaker insertion on 12/27/16 for sick sinus syndrome was sent from cardiology office to emergency room due to worsening palpitation, chest pain and headache. # Episodes of palpitation/chest pain and headache,acute on chronic - unclear etiology at this point.due to multifocal PVCs vs others.symptoms coincide with PVCs on monitor as per ED ,pacemaker interrogated today and functioning well -CTA chest to r/o PE ordered ,will f/u -troponin negative,echo unremarkable,electrolytes ok -place on telemetry -avoid qt prolonging meds -CT brain negative -will follow up EP Dr Henriquez's recommendation # SSS s/p PPM ,stable -PM functioning well # HTN,chronic -continue home amlodipine Full code ,verified with patient and at bedside admitted under observation status with expected LOS < 2 MNs copies to: Oliver Henriquez MD; Maximus Bermeo MD, Melaku MD Jan 05, 2017 16:39
--- NOTE | 2017-01-05 17:13 | DRSVH ---
PROCEDURE: CT ANGIO CHEST PULMONARY EMBOLISM ([id number]) INDICATIONS: 66 year-old male with chest pain, dyspnea. TECHNIQUE: After the administration of intravenous contrast, 2 mm thick sections acquired from the pulmonary api vane to the posterior costophrenic angles. 3-dimensional maximum intensity projection (MIP) coronal a nd sagittal reformats were then acquired through the thorax. For radiation dose reduction, the follo wing was used: automated exposure control, adjustment of mA and/or kV according to patient size. COMPARISON: [facility], CR, XR CHEST 1VW (PORTABLE), 01/05/2017, 11:24. FINDINGS: Image quality: Excellent. Pulmonary arteries: Pulmonary arteries are normal in size, and demonstrate no intraluminal filling d efects to suggest central pulmonary embolism. Lungs and pleura: There is pleural thickening with calcified and noncalcified pleural plaques in the upper thorax bilaterally. There is mild interstitial prominence. Lungs are clear. No pleural effusi ons or pneumothorax. Central and peripheral airways are patent. Mediastinum: Heart is mildly enlarged. No pericardial effusion. No mediastinal or hilar adenopathy. Thoracic aorta is normal in caliber and enhancement. Esophagus is normal in caliber, without hiata l hernia. Bones and chest wall: No suspicious bony lesions. Ribs and thoracic spine appear intact throughout. Thyroid gland is normal. No axillary or supraclavicular adenopathy. Abdomen: Visualized upper abdominal solid organs appear normal in the early arterial phase of enhanc ement. IMPRESSION: 1. No evidence for central pulmonary embolus. 2. Bilateral calcified and noncalcified pleural plaques. Recommend clinical correlation for asbestos exposure. 3. Mild cardiomegaly. Dictated by: Ct Blair M.D. on 01/05/2017 at 16:57 Transcribed by: SOPHIA on 01/05/2017 at 17:04 Approved by: Ct Blair M.D. on 01/05/2017 at 17:10
--- NOTE | 2017-01-05 17:31 | NUR ---
admission: patient arrived from ER at 1730hrs. admitted to room 250-1. assumed care at 1730hrs
[2017-01-05 22:43] LABS: APPEARANCE,URINE HAZY (CLEAR,HAZY); COLOR,URINE YELLOW (YELLOW); OCCULT BLOOD,URINE TRACE (NEGATIVE); PH,URINE 7.5 (5.0-8.0); UROBILINOGEN,URINE NORMAL (NORMAL)
[2017-01-05] MEDS ORDERED: Promethazine Inj 12.5 MG in Dextrose 5%-Pha MIX 50 ML IV ONE (23:05)
[2017-01-06] VITALS (7 sets, daily range): BP systolic 118–146; BP diastolic 75–92; PULSE 69–78; RESP 15–17; O2SAT 94–96
[2017-01-06] MEDS: Ondansetron 2 mg/mL 2 mL Inj IVPUSH PRN (02:09)
[2017-01-06 06:58] LABS: BASOPHILS % (AUTO) 0.6 % (0-3); EOSINOPHILS % (AUTO) 5.6 % (0-5); Mean Corpuscular Hemoglobin 29.6 pg (27.0-35.0); Mean Corpuscular Volume 85.6 fL (81-100); NEUTROPHILS % (AUTO) 55.4 % (40-74); Platelet Count 138 bil/L (150-400)
--- NOTE | 2017-01-06 07:12 | NUR ---
Nausea/Pain frequent n/v at start of shift for which Zofran was not effective. Md notified with one time dose of Phenergan IV. Dose given and effective. Mild nausea noted throughout remainder of shift but patient states it has been tolerable. c/o LLE phantom nerve pain. Prn oxycodone 5mg administered. Patient requesting additional oxycodone and states he takes 10mg every 2-3 hours at home until pain is tolerable. MD notified with orders for one time dose of oxycodone 5mg. Dose given and patient currently sleeping.
[2017-01-06] MEDS: PARoxetine 20 mg Tablet PO SCH (08:20)
--- NOTE | 2017-01-06 11:23 | NUR ---
Case Management: PAULA delivered and explained. Signed original placed in chart. Copy left at bedside. Yoli Liang RN
[2017-01-06] MEDS: oxyCODONE-Acetamin 10-325 mg Tablet PO PRN ×2 (14:55→20:18)
--- NOTE | 2017-01-06 16:11 | NUR ---
LACK OF ENERGY P- Patient states "I just don't have any energy, this has been going on for the last three months, I get up and work and by 930 I am tired. Have had nausea/vomiting once or twice a week for month, shortness of breath with activity and palpations". Patient c/o leg pain. I- Patient to have stress test in 0800 tomorrow 01/07, NPO at midnight, no caffeine today. Pain medications given for phantom leg pain given. E-Patient states "medications helped the pain". Will await stress test results, cardiology consulted, normal heart rate per lunchroom monitor. LABS -WNL, BG 119 NEURO- LOC X4, Patient appears somewhat passive. CVS- AV paced 70's PLUM- RA, Patient claim SOB with activity GI-Denies nausea, eating 1/2 meals -Urinal SBA SKIN- Left AKA PAIN -See above note PLAN- Stress test in am, control pain/nausea. IV-S/L
--- NOTE | 2017-01-06 16:28 | NUR ---
Social Work Note Initial Assessment: D/A: See Initial Assessment. The Pt is a 66 y/o male that was admitted under observation status for chest pain. The Pts PCP is MD Maximus Bermeo and her insurance is Medicare with [employer] supplement, no LTC or VA benefits. EMR reviewed. SW met with the Pt at bedside to explain role and discuss discharge planning. The Pt lives independently in [place] with his . The Pt reports that his DPOA is his Claire. The Pt uses crutches and a wheelcare at baseline. He reports no history of HH or SNF. Pts to provide transportation for discharge. No needs anticipated at this time. SW will to follow if needs arise. P: The Pt is not medically stable at this time. No needs anticipated, SW to follow if needs arise. DAMIAN Nelson LICSW Addendum: 01/06/17 at 1630 by ABHIJIT BARRIOS SS Amended: Links added.
--- NOTE | 2017-01-06 17:44 | PCM.PNMED ---
Subjective Date of Service Jan 06, 2017 Subjective Continues to have episodes of palpitation and headache with no fire alarm inspector telemetry event. Discussed with Dr. Henriquez, will do stress test Exam Vital Signs Vital Sign - Last Date Time Temp Pulse Resp B/P Pulse Ox O2 Delivery O2 Flow Rate FiO2 01/06/17 17:04 36.8 70 16 118/77 94 Room Air 01/05/17 23:51 2.00 Intake and Output 01/05/17 01/05/17 01/06/17 Cumulative From/Thru 14:59 22:59 06:59 01/05/17 11:32 - 01/06/17 04:32 Intake Total 600 ml 600 ml Output Total 1000 ml 1000 ml Balance -400 ml -400 ml Intake Oral 600 ml 600 ml IV Total 0 ml 0 ml Output Urine Total 1000 ml 1000 ml Exam Gen. patient is lying comfortably in hospital bed HEENT: Head is normocephalic atraumatic, Pupils equal and reactive, extraocular movements intact, Lungs clear to auscultation bilaterally Heart regular rate and rhythm without murmurs gallops or rubs Abdomen soft nontender without hepatosplenomegaly Extremities left AKA,LUE slightly swollen Psych alert and oriented to person place and time Neuro cranial nerves II through XII are grossly intact Lymph: There is no lymphadenopathy appreciated in the cervical supra infraclavicular regions : no IVs and Medications Medications Reviewed: Medications were reviewed in detail Lab and Diagnostics Result Diagram: 01/06/17 0620 01/06/17 0620 X-Rays, CTs and MRIs PROCEDURE: CT BRAIN WITHOUT CONTRAST ([id number]) INDICATIONS: 66-year-old male with headache. TECHNIQUE: Noncontrast 4.5 mm thick angled axial sections acquired from the foramen magnum to the vertex, with coronal reformats. COMPARISON: [facility], CT, HEAD WITHOUT CONTRAST, 03/22/2011, 15:17. FINDINGS: Image quality: Excellent. CSF spaces: Basal cisterns are patent. No extra-axial fluid collections. The ventricles are symmetric in size and shape. Brain: No intracranial bleeds or masses. There is minimal cerebral volume loss for age, with resultant ventricular and sulcal prominence. There are mild periventricular and deep white matter chronic small vessel ischemic changes. There is intracranial internal carotid artery atherosclerosis. Skull and face: Calvarium and visualized facial bones appear intact, without suspicious lesions. Sinuses: Visualized sinuses and mastoids are clear. IMPRESSION: No acute intracranial abnormalities. Dictated by: Ct Blair M.D. on 01/05/2017 at 12:03 ROCEDURE: X-RAY CHEST ONE VIEW, PORTABLE ([id number]) INDICATIONS: CHEST PAIN TECHNIQUE: One view of the chest was acquired. COMPARISON: [facility], CR, XR CHEST 1VW (PORTABLE), 12/27/2016, 16: 38. FINDINGS: Surgical changes and devices: There is a cardiac pacemaker with lesion expected position.. Lungs and pleura: Bibasilar opacities are most atelectasis. No pleural effusions or pneumothorax. Mediastinum: Mediastinal contours appear normal. Heart size is normal. Bones and chest wall: No suspicious bony lesions. Overlying soft tissues appear unremarkable. IMPRESSION: 1. no acute cardiopulmonary disease. 2. Bibasilar atelectasis. Dictated by: Ct Blair M.D. on 01/05/2017 at 11:55 Assessment & Plan 66-year-old gentleman with past medical history of torsades and sudden cardiac arrest in 2007, recent pacemaker insertion on 12/27/16 for sick sinus syndrome was sent from cardiology office to emergency room due to worsening palpitation, chest pain and headache. # Episodes of palpitation/chest pain and headache,acute on chronic - unclear etiology at this point.due to multifocal PVCs vs others.Initially symptoms coincided with PVCs on monitor as per ED ,pacemaker interrogated and functioning well.Continues to have episodes of palpitation and headache with no fire alarm inspector telemetry event. Discussed with Dr. Henriquez, will do stress test. will start beta blockers after stress test for frequent PVCs -CTA chest negative for PE ordered -troponin negative x2,echo unremarkable,electrolytes ok -place on telemetry, uneventful so far -avoid qt prolonging meds -CT brain negative # SSS s/p PPM ,stable -PM functioning well # HTN,chronic -continue home amlodipine Full code ,verified with patient and at bedside Possible discharge tomorrow after stress test Armando Perez MD Jan 06, 2017 17:44
--- NOTE | 2017-01-06 23:06 | NUR ---
pain patient complained of "phantom pain" to left leg. rated 3 medicated with oxycodone 10/acetaminophen 2 nd assessment patient rates pain a 2. resting quietly at this time.
[2017-01-07] MEDS: oxyCODONE-Acetamin 10-325 mg Tablet PO PRN ×3 (00:15→13:34)
[2017-01-07 04:43] VITALS: BP 122/84; PULSE 70; RESP 16; O2SAT 94
[2017-01-07 05:40] VITALS: PULSE 75
[2017-01-07 07:19] VITALS: BP 131/86; PULSE 70; RESP 15; O2SAT 95
[2017-01-07 08:20] VITALS: PULSE 70
[2017-01-07] MEDS: PARoxetine 20 mg Tablet PO SCH (08:34)
[2017-01-07 08:55] LABS: BASOPHILS % (AUTO) 0.6 % (0-3); EOSINOPHILS % (AUTO) 9.7 % (0-5); MONOCYTES % (AUTO) 8.9 % (4-12); Mean Corpuscular Hemoglobin 29.9 pg (27.0-35.0); Mean Corpuscular Volume 86.9 fL (81-100); NEUTROPHILS % (AUTO) 52.1 % (40-74); Platelet Count 137 bil/L (150-400)
--- NOTE | 2017-01-07 09:00 | NUR ---
Stress Test NPO after mid night for stress test. Patient went for stress test. Stable vital signs. Denies pain or discomfort. Ordered PO medications received with sips of water with out difficulty swallowing.
[2017-01-07 10:24] LABS: ERYTHROCYTE SEDIMENTATION RATE 2 mm/hr (0-30)
[2017-01-07] MEDS ORDERED: MeTOProlol XL 25 mg ER24 Tablet PO SCH (13:25)
--- NOTE | 2017-01-07 13:46 | DRSVH ---
PROCEDURE: STRESS ONLY Pharmacological stress myocardial perfusion SPECT; gated images not acquired. RADIOPHARMACEUTICAL: 21.4 mCi of Tc-99m sestamibi intravenously at peak pharmacologic stress. INDICATIONS: palpitation. TECHNIQUE: Radiopharmaceutical was injected at peak stress test. SPECT images were obtained. SPECT myocardial perfusion images were displayed in short axis, horizontal long axis, and vertical axis vi ews. COMPARISON: None. CARDIAC STRESS: A pharmacologic stress test was performed under the supervision of an attending meño clark, using an infusion of Regadenoson. Hemodynamic data: There is normal blood pressure and heart rate response to pharmacologic stress. Symptoms: The patient denied anginal chest pain during drug infusion. Aminophylline: 100 mg IV EKG: No diagnostic EKG changes of ischemia; no ectopy. FINDINGS: Raw data: There is good tracer uptake by the myocardium. No significant motion artifacts. Left ventricular function: Gated images were not obtained to assess wall motion and ejection fractio n, due to irregular heart rate. Myocardial perfusion: There is normal distribution of activity in the left and right ventricular dawit cardium. No perfusion defects. IMPRESSION: This is a normal myocardial perfusion study. Pharmacological stress EKG is nondiagnostic. Overall thi s is a low risk study. Dictated by: Mt Hill Jr., M.D. on 01/07/2017 at 13:41 Approved by: Mt Hill Jr., M.D. on 01/07/2017 at 13:45
--- NOTE | 2017-01-07 13:55 | PCM.DIMED ---
Discharge Instructions Date of Service Jan 07, 2017 Dates of Hospitalization Jan 05, 2017 at 15:58 Discharge Diagnosis Discharge Diagnosis # Episodes of palpitation/chest pain and headache,acute on chronic - unclear etiology at this point.needs outpatient follow up and workup .worsening of depression may be a cause or at least contributing # Generalized weakness and low energy, chronic, due to suspected worsening of depression -Please follow-up with PCP. You may need additional antidepressants. #Frequent PVCs, chronic -Started on metoprolol # SSS s/p PPM ,stable -PM functioning well # HTN,chronic Test Results Normal thyroid function test Diet Low fat, Low Sodium, Heart Healthy Activity Limited until seen by PCP Call your provider Fever or Chills, Shortness of breath, Bleeding, Chest pain, Vomitting, Excessive diarrhea, Weakness (unilateral) Patient Instructions You were hospitalized due to episodes of palpitation/chest pain and headache. Pacemaker interrogated and functioning.. No significant arrhythmia on telemetry during your stay except PVCs on the day of admission. You stated you have been feeling generally weak with poor energy and depressed mood. Worsening of depression may be contributing to your symptoms. your PCP has increased your antidepressants recently. Please follow-up with PCP you may need additional antidepressants. Please follow-up with Dr. Henriquez in 2-3 weeks. Follow-up plan Please follow-up with PCP in 1 week. Please follow-up with Dr. Henriquez in 2-3 weeks. Follow-up Provider: Maximus Bermeo MD Follow-up with PCP in: 1 week Provider: Oliver Henriquez MD Follow-up in: 2 weeks Armando Perez MD Jan 07, 2017 13:55
[2017-01-07] MEDS ORDERED: METO25TA99 PO (13:57)
[2017-01-07 14:37] VITALS: BP 148/92; PULSE 71; RESP 14; O2SAT 96
--- NOTE | 2017-01-07 14:51 | NUR ---
Discharge Patient is alert and oriented X3. C/o pain to left leg 01/27. PRN pain medication given with effective result pain 11/29. Doctor at bed side to review stress test results and cancelled Metoprolol prescription. Reviewed discharge paper work including discharge instructions and continuing medications. patient understood discharge continuing medications and follow up appointments, signed discharge paperwork. per patient follow up with PCP already scheduled for this Monday and will follow up with Dr. Henriquez per discharge instructions. IV to right arm discontinued with out any difficulty. Six Color Press Operator aware for DC telemetry. stable vital signs. patient called family for ride home and awaiting ride.
--- NOTE | 2017-01-07 14:54 | PCM.DC.MED ---
Discharge Summary Date of Service Jan 07, 2017 Dates of Hospitalization Date of Hospital Admission Jan 05, 2017 at 15:58 Date of Discharge: Jan 07, 2017 Providers: Admitting Physician: Armando Perez MD Primary Care Physician: Maximus Bermeo MD Attending Physician: Armando Perez MD Diagnosis at Time of Discharge Diagnosis at Time of Discharge # Episodes of palpitation/chest pain and headache,acute on chronic - unclear etiology at this point.needs outpatient follow up and workup .worsening of depression may be a cause or at least contributing # Generalized weakness and low energy, chronic, due to suspected worsening of depression -Please follow-up with PCP. You may need additional antidepressants. # PVCs, chronic # SSS s/p PPM ,stable -PM functioning well # HTN,chronic Consultations Dr Florence PERDOMO Procedures XRay, CTs & MRIs PROCEDURE: CT BRAIN WITHOUT CONTRAST ([id number]) INDICATIONS: 66-year-old male with headache. TECHNIQUE: Noncontrast 4.5 mm thick angled axial sections acquired from the foramen magnum to the vertex, with coronal reformats. COMPARISON: [facility], CT, HEAD WITHOUT CONTRAST, 03/22/2011, 15:17. FINDINGS: Image quality: Excellent. CSF spaces: Basal cisterns are patent. No extra-axial fluid collections. The ventricles are symmetric in size and shape. Brain: No intracranial bleeds or masses. There is minimal cerebral volume loss for age, with resultant ventricular and sulcal prominence. There are mild periventricular and deep white matter chronic small vessel ischemic changes. There is intracranial internal carotid artery atherosclerosis. Skull and face: Calvarium and visualized facial bones appear intact, without suspicious lesions. Sinuses: Visualized sinuses and mastoids are clear. IMPRESSION: No acute intracranial abnormalities. Dictated by: Ct Blair M.D. on 01/05/2017 at 12:03 ROCEDURE: X-RAY CHEST ONE VIEW, PORTABLE ([id number]) INDICATIONS: CHEST PAIN TECHNIQUE: One view of the chest was acquired. COMPARISON: [facility], CR, XR CHEST 1VW (PORTABLE), 12/27/2016, 16: 38. FINDINGS: Surgical changes and devices: There is a cardiac pacemaker with lesion expected position.. Lungs and pleura: Bibasilar opacities are most atelectasis. No pleural effusions or pneumothorax. Mediastinum: Mediastinal contours appear normal. Heart size is normal. Bones and chest wall: No suspicious bony lesions. Overlying soft tissues appear unremarkable. IMPRESSION: 1. no acute cardiopulmonary disease. 2. Bibasilar atelectasis. Dictated by: Ct Blair M.D. on 01/05/2017 at 11:55 PROCEDURE: STRESS ONLY Pharmacological stress myocardial perfusion SPECT; gated images not acquired. RADIOPHARMACEUTICAL: 21.4 mCi of Tc-99m sestamibi intravenously at peak pharmacologic stress. INDICATIONS: palpitation. TECHNIQUE: Radiopharmaceutical was injected at peak stress test. SPECT images were obtained. SPECT myocardial perfusion images were displayed in short axis, horizontal long axis, and vertical axis views. COMPARISON: None. CARDIAC STRESS: A pharmacologic stress test was performed under the supervision of an attending staff, using an infusion of Regadenoson. Hemodynamic data: There is normal blood pressure and heart rate response to pharmacologic stress. Symptoms: The patient denied anginal chest pain during drug infusion. Aminophylline: 100 mg IV EKG: No diagnostic EKG changes of ischemia; no ectopy. FINDINGS: Raw data: There is good tracer uptake by the myocardium. No significant motion artifacts. Left ventricular function: Gated images were not obtained to assess wall motion and ejection fraction, due to irregular heart rate. Myocardial perfusion: There is normal distribution of activity in the left and right ventricular myocardium. No perfusion defects. IMPRESSION: This is a normal myocardial perfusion study. Pharmacological stress EKG is nondiagnostic. Overall this is a low risk study. Dictated by: Mt Hill Jr., M.D. on 01/07/2017 at 13:41 PROCEDURE: CT ANGIO CHEST PULMONARY EMBOLISM ([id number]) INDICATIONS: 66 year-old male with chest pain, dyspnea. TECHNIQUE: After the administration of intravenous contrast, 2 mm thick sections acquired from the pulmonary apices to the posterior costophrenic angles. 3-dimensional maximum intensity projection (MIP) coronal and sagittal reformats were then acquired through the thorax. For radiation dose reduction, the following was used: automated exposure control, adjustment of mA and/or kV according to patient size. COMPARISON: [facility], CR, XR CHEST 1VW (PORTABLE), 01/05/2017, 11: 24. FINDINGS: Image quality: Excellent. Pulmonary arteries: Pulmonary arteries are normal in size, and demonstrate no intraluminal filling defects to suggest central pulmonary embolism. Lungs and pleura: There is pleural thickening with calcified and noncalcified pleural plaques in the upper thorax bilaterally. There is mild interstitial prominence. Lungs are clear. No pleural effusions or pneumothorax. Central and peripheral airways are patent. Mediastinum: Heart is mildly enlarged. No pericardial effusion. No mediastinal or hilar adenopathy. Thoracic aorta is normal in caliber and enhancement. Esophagus is normal in caliber, without hiatal hernia. Bones and chest wall: No suspicious bony lesions. Ribs and thoracic spine appear intact throughout. Thyroid gland is normal. No axillary or supraclavicular adenopathy. Abdomen: Visualized upper abdominal solid organs appear normal in the early arterial phase of enhancement. IMPRESSION: 1. No evidence for central pulmonary embolus. 2. Bilateral calcified and noncalcified pleural plaques. Recommend clinical correlation for asbestos exposure. 3. Mild cardiomegaly. Dictated by: Ct Blair M.D. on 01/05/2017 at 16:57 Brief History as per HPI performed by ms on 01/05/17 66-year-old gentleman with past medical history of torsades and sudden cardiac arrest in 2007, recent pacemaker insertion on 12/27/16 for sick sinus syndrome was sent from cardiology office to emergency room due to worsening palpitation, chest pain and headache of 4 days . Patient states he has episodes of palpitation, recurrent near syncope and associated lightheadedness for long time. He was evaluated and was found to have symptomatic bradycardia HR 40s and underwent successful dual-chamber pacemaker insertion on December 27. He states he had complete resolution of all his symptoms for the first 2-3 days following pacemaker insertion. He says he started to have episodes of palpitation and associated chest pressure lasting few seconds. He would have associated global headache,5-7/10 during palpitation/ chest pressure episodes. He had scheduled follow-up appointment today with his activated sludge operator Dr Henriquez today . He had more severe and prolonged episode of his symptoms when he walked from his car to the band saw runner office. Denies diaphoresis. Denies shortness of breath. notes his left upper extremity slightly more swollen. Denies fever He was seen by in office today. Pacemaker interrogated and reportedly functioning well. He was advised to come to emergency room for evaluation In ED, BP 164/94, otherwise unremarkable vitals and exam EKG a paced.monitor review ,frequent PVCs Unremarkable labs with negative troponin He reportedly had episodes of symptoms in the emergency room which coincided with frequent PVCs on monitor as per ED attending Limited echocardiogram negative for pericardial effusion,CTA chest ordered Hospital Course 66-year-old gentleman with past medical history of torsades and sudden cardiac arrest in 2007, recent pacemaker insertion on 12/27/16 for sick sinus syndrome was sent from cardiology office to emergency room due to worsening palpitation, chest pain and headache. # Episodes of palpitation/chest pain and headache,acute on chronic - unclear etiology at this point..Initially symptoms coincided with PVCs on monitor as per ED ,pacemaker interrogated and functioning well.Continues to have episodes of palpitation and headache with no citizenship instructor telemetry event. Discussed with Dr. Henriquez,stress test negative. Initial considered beta blockers but PVCs too few to cause any symptoms. QTc > 500 and patient has history of torsades -Talked to patient in detail. He has been feeling fatigued with low energy for the past 6-7 month. He also has depressed mood. His PCP increased his SSRI from 20 mg to 30 mg by mouth daily 6 weeks ago. I strongly feel worsening of depression is at least contributing to his symptoms if not the cause of his symptoms. Advised to follow-up with PCP closely for age-appropriate screening of cancer which includes colonoscopy and optimization of his antidepressants. He may need more antidepressant. -CTA chest negative for PE -troponin negative x2,echo unremarkable,electrolytes ok. Thyroid function test within normal limits -placed on telemetry, uneventful so far -avoid qt prolonging meds -CT brain negative # Generalized weakness/low energy due to suspected worsening of depression -Follow-up with PCP as stated above # SSS s/p PPM ,stable -PM functioning well # HTN,chronic -continue home amlodipine Full code ,verified with patient and at bedside discharge home Condition on discharge stable Exam Vital Signs (Last) Date Time Temp Pulse Resp B/P Pulse Ox O2 Delivery O2 Flow Rate FiO2 01/07/17 14:37 36.7 71 14 148/92 96 Room Air 01/05/17 23:51 2.00 Exam Gen. patient is lying comfortably in hospital bed HEENT: Head is normocephalic atraumatic, Pupils equal and reactive, extraocular movements intact, Lungs clear to auscultation bilaterally Heart regular rate and rhythm without murmurs gallops or rubs Abdomen soft nontender without hepatosplenomegaly Extremities left AKA,LUE slightly swollen Psych alert and oriented to person place and time Neuro cranial nerves II through XII are grossly intact Lymph: There is no lymphadenopathy appreciated in the cervical supra infraclavicular regions : no Test 01/05/17 12:24 01/05/17 22:30 01/06/17 06:20 01/06/17 14:18 Hold Lay Top Tube Received (Received) Urine Color Yellow (YELLOW) Urine Appearance Hazy (CLEAR,HAZY) Urine pH 7.5 (5.0-8.0) Urine Specific [place] 1.010 (1.003-1.035) Urine Protein Negativemg/dL (NEG,TRACE) Urine Glucose (UA) Negativemg/dL (NEGATIVE) Urine Ketones Negativemg/dL (NEGATIVE) Urine Occult Blood Trace (NEGATIVE) Urine Nitrite Negative (NEGATIVE) Urine Bilirubin Negative (NEGATIVE) Urine Urobilinogen Normalmg/dL (NORMAL) Urine Leukocyte Esterase Negative (NEGATIVE) Urine RBC 0-2/hpf (0-2) Urine WBC 0-5/hpf (0-5) Urine Epithelial Cells Occasional/hpf (NONE-MOD) Urine Crystals Amorphous phosphates Urine Bacteria None/hpf (NONE-FEW) Urine Hyaline Casts None/lpf (NONE) Urine Granular Casts None seen (NONE SEEN) Urine Waxy Casts None seen (NONE SEEN) Urine Red Blood Cell Casts None seen (NONE SEEN) Urine White Blood Cell Casts None seen (NONE SEEN) Urine Mucus None seen (None Seen) Urine Trichomonas None seen (NONE SEEN) Urine Yeast None (NONE SEEN) Urinalysis Comment None Urine Culture Reflexed Not indicated Magnesium Level 2.0mg/dL (1.6-2.6) Rapid Plasma Reagin Non reactive (Non Reactive) Troponin T < 0.010ug/L (0.0-0.011) Test 01/07/17 08:15 White Blood Count 8.3th/mm3 (3.8-10.1) Red Blood Count 5.18mil/mm3 (4.40-5.80) Hemoglobin 15.5g/dL (13.8-17.2) Hematocrit 45.0% (41.0-50.0) Mean Corpuscular Volume 86.9fL (81-100) Mean Corpuscular Hemoglobin 29.9pg (27.0-35.0) Mean Corpuscular Hemoglobin Concent 34.4% (32.0-37.0) Red Cell Distribution Width 13.7% (12.3-15.4) Platelet Count 137bil/L (150-400) Neutrophils (%) (Auto) 52.1% (40-74) Lymphocytes (%) (Auto) 28.1% (14-46) Monocytes (%) (Auto) 8.9% (4-12) Eosinophils (%) (Auto) 9.7% (0-5) Basophils (%) (Auto) 0.6% (0-3) Erythrocyte Sedimentation Rate 2mm/hr (0-30) Sodium Level 140mEq/L (134-144) Potassium Level 4.0mEq/L (3.5-5.2) Chloride Level 102mEq/L (97-108) Carbon Dioxide Level 25mmol/L (18-29) Blood Urea Nitrogen 20mg/dL (8-27) Creatinine 1.09mg/dL (0.76-1.27) Estimat Glomerular Filtration Rate 72mL/min (>59) Glucose Level 97mg/dL (60-99) Calcium Level 9.3mg/dL (8.5-10.1) Total Bilirubin 0.3mg/dL (0.0-1.2) Aspartate Amino Transf (AST/SGOT) 18U/L (0-50) Alanine Aminotransferase (ALT/SGPT) 25U/L (0-44) Alkaline Phosphatase 78U/L (25-160) Total Protein 6.6g/dL (6.4-8.4) Albumin 4.3g/dL (3.4-5.0) Thyroid Stimulating Hormone (TSH) 2.460uIU/mL (0.450-4.500) Free Thyroxine 1.18ng/dL (0.82-1.77) Discharge Medications Discharge Medications Amlodipine (Amlodipine) 10 Mg Tablet 10 MG PO DAILY (Reported) Gabapentin (Gabapentin) 600 Mg Tablet 900 MG PO TID (Reported) Paroxetine (Paroxetine) 30 Mg Tablet 30 MG PO DAILY (Reported) Trazodone (Trazodone) 50 Mg Tablet 100 MG PO HS (Reported) As needed Cyclobenzaprine (Cyclobenzaprine) 10 Mg Tablet 10 MG PO DIRECTED PRN PRN Spasm (Reported) Ondansetron (Zofran) 8 Mg Tablet 8 MG PO Q4H PRN PRN For Nausea (Reported) oxyCODONE (oxyCODONE) 5 Mg Tablet 5 MG PO Q6H PRN PRN For Pain (Reported) Followup Plan Disposition: home Follow-up plan Please follow-up with PCP in 1 week. Please follow-up with Dr. Henriquez in 2-3 weeks. Discharge Diet: Low fat, Low Sodium, Heart Healthy Discharge Activity: Limited until seen by PCP Patient Instructions You were hospitalized due to episodes of palpitation/chest pain and headache. Pacemaker interrogated and functioning.. No significant arrhythmia on telemetry during your stay except PVCs on the day of admission. You stated you have been feeling generally weak with poor energy and depressed mood. Worsening of depression may be contributing to your symptoms. your PCP has increased your antidepressants recently. Please follow-up with PCP you may need additional antidepressants. Please follow-up with Dr. Henriquez in 2-3 weeks. Follow-up Provider: Maximus Bermeo MD Follow-up with PCP in: 1 week Provider: Oliver Henriquez MD Follow-up in: 2 weeks copies to: Oliver Henriquez MD; Maximus Bermeo MD, Melaku MD Jan 07, 2017 14:53
--- NOTE | 2017-01-07 15:30 | NUR ---
Discharged Family here and patient accompanied by nursing staff via wheel chair with belongings and left prosthetic. Denied pain or discomfort.
== END 2017-01-07 15:25 | disposition home or self-care (01) ==
LOC: SED 11:20 → MOC 15:24 → SED 15:24 → MOC 15:58
PROVIDERS: ADMIT Internal Medicine; ATTEND Internal Medicine
DX: R07.9 Chest pain, unspecified (principal); R51 Headache; R00.2 Palpitations; R53.1 Weakness; F32.9 Major depressive disorder, single episode, unspecified; I49.3 Ventricular premature depolarization; I10 Essential (primary) hypertension; I46.9 Cardiac arrest, cause unspecified; I49.5 Sick sinus syndrome; Z95.0 Presence of cardiac pacemaker; Z89.612 Acquired absence of left leg above knee
CPT/HCPCS: 36415; 70450; 71010; 71275; 78451; 80053; 81000; 83735; 84439; 84443; 84484; 85025; 85651; 86592; 93005; 93017; 96374; 96375; 96376; 99285; A9502; C8924; G0378; J0280; J2405; J2550; J2785; Q9967